=== PATIENT | male | born 1980 | race Hispanic/Latino ===

== ENCOUNTER 2019-02-16 22:13 | Inpatient (IN) ==
[2019-02-16 22:55] LABS: BASO# 0.06 X1000 (0.0-0.2); BASO% 0.3 % (0.0-0.8); EOS# 0.01 X1000 (0.0-0.7); HEMATOCRIT 52.5 % (42.0-52.0); IMM GRAN# 0.11 X1000 (0.0-0.04); IMM GRAN% 0.5 % (0.0-0.5); LYMPH# 1.56 X1000 (1.2-3.4); LYMPH% 6.8 % (20.5-51.1); MCH 31.2 PG (27-31); MCHC 36.2 g/dL (33-37); MCV 86.2 FL (81-99); MONO# 1.06 X1000 (0.11-0.59); MONO% 4.6 % (1.7-9.3); MPV 10.5 FL (7.4-10.4); NEUT# 20.29 X1000 (1.4-6.5); NEUT% 87.8 % (42.2-75.2); PLT 479 X1000 (130-400); RBC 6.09 XMIL (4.7-6.1); RDW 13.5 % (11.5-14.5); WBC 23.09 X1000 (4.8-10.8)
[2019-02-16 23:06] LABS: ESTIMATED GFR > 60
[2019-02-16 23:15] LABS: AGAP 31; ALBUMIN 5.2 g/dL (3.5-5.0); ALKALINE PHOSPHATASE 153 U/L (32-122); BUN 11 mg/dL (8-22); CALCIUM 9.4 mg/dL (8.8-10.2); CHLORIDE 102 mmol/L (98-107); COSMO 300; GOT 11 U/L (10-34); GPT 18 U/L (10-44); POTASSIUM 5.3 mmol/L (3.5-5.1); SODIUM 139 mmol/L (136-145); TCO2 6 mmol/L (25-35); TOTAL PROTEIN 8.5 g/dL (6.3-8.3)
[2019-02-16 23:18] LABS: GLUCOSE 515 mg/dL (70-104)
[2019-02-16] MEDS ORDERED: NS 1,000 ML IV ONE (23:41)
[2019-02-16] MEDS ORDERED: HUMALOG (PARKWAY) IV ONE (23:42)
[2019-02-16 23:59] LABS: BE -26.2 mmoll (-2.0-2.0); BLOOD TYPE VENOUS; HCO3-(ACT) 2.1 mmoll (22-27); PCO2(98.6) 29 mmHg (40-60); PO2(98.6) 16 mmHg (30-55); SAMPLE BLOOD; SAO2 38.8 % (40.0-85.0)
[2019-02-17 00:05] LABS: pH(98.6) 6.92 (7.32-7.43)
[2019-02-17] MEDS ORDERED: NS 1,000 ML IV ONE ×2 (00:24→00:58)
[2019-02-17] MEDS ORDERED: ZOFRAN IV PRN ×2 (00:56→08:45)
[2019-02-17] MEDS ORDERED: HUMULIN R (PARKWAY) ONE (01:10)
[2019-02-17] MEDS ORDERED: NS 100 ML ONE (01:11)
[2019-02-17] MEDS: HUMULIN R (PARKWAY) 100 UNITS in NS 100 ML IV SCH (01:30)
[2019-02-17 04:26] LABS: AGAP 20; BUN 12 mg/dL (8-22); CALCIUM 8.1 mg/dL (8.8-10.2); CHLORIDE 113 mmol/L (98-107); COSMO 288; CREATININE 0.8 mg/dL (0.7-1.2); ESTIMATED GFR > 60; GLUCOSE 291 mg/dL (70-104); MAGNESIUM 1.9 mg/dL (1.5-2.7); PHOSPHORUS 1.7 mg/dL (2.7-4.5); SODIUM 139 mmol/L (136-145); TCO2 7 mmol/L (25-35)
[2019-02-17 08:35] LABS: ESTIMATED GFR > 60
[2019-02-17 08:44] LABS: AGAP 12; BUN 12 mg/dL (8-22); CALCIUM 8.4 mg/dL (8.8-10.2); CHLORIDE 113 mmol/L (98-107); COSMO 285; CREATININE 0.7 mg/dL (0.7-1.2); GLUCOSE 237 mg/dL (70-104); MAGNESIUM 1.9 mg/dL (1.5-2.7); PHOSPHORUS 1.5 mg/dL (2.7-4.5); POTASSIUM 4.1 mmol/L (3.5-5.1); SODIUM 139 mmol/L (136-145); TCO2 14 mmol/L (25-35)
[2019-02-17] MEDS ORDERED: SODIUM PHOSPHATE 30 MMOL in D5W 250 ML IV PRN (08:45)
[2019-02-17] MEDS ORDERED: D50W SYRINGE IV PRN (08:45)
[2019-02-17] MEDS ORDERED: POTASSIUM CHLORIDE 10% LIQUID PO PRN (08:45)
[2019-02-17] MEDS ORDERED: MAGNESIUM SULFATE 2 GM/S.W.I. 2 GM/50 ML IVPB IV PRN (08:45)
--- NOTE | 2019-02-17 09:31 | EKG Report ---
Test Performed on : 02/16/2019 11:21:14 PM Test Reason : ER Blood Pressure : / mmHG Vent. Rate : 126 BPM Atrial Rate : 126 BPM P-R Int : 116 ms QRS Dur : 122 ms QT Int : 336 ms P-R-T Axes : 079 103 016 degrees QTc Int : 486 ms Sinus tachycardia. Right bundle branch block T wave abnormality, consider inferior ischemia Abnormal ECG No previous ECGs available Unconfirmed Result
[2019-02-17] MEDS: NS 1,000 ML IV SCH ×3 (10:30→23:00)
--- NOTE | 2019-02-17 11:39 | HISTORY AND PHYSICAL ---
CHIEF COMPLAINT: Was increased thirst, weakness, nausea, vomiting. HISTORY OF PRESENT ILLNESS: This is a 38-year-old gentleman who presents to the emergency room complaining of generalized weakness, thirst, as well as urination over the last 24 hours. He states that his children have been sick and he felt that he was getting the same although his symptoms progressed to the point of him spending all day in bed prior to coming to the ER. Of note, the patient was diagnosed with diabetes 2 months prior. He was placed on metformin, but he states he does not check his blood sugars because it hurts his fingers. Fingerstick blood sugar in triage was greater than 500. BMP revealed a glucose of 515. He was found to be with blood glucose being 515 on a BMP. PAST MEDICAL HISTORY: Diabetes mellitus. PAST SURGICAL HISTORY: Denies. SOCIAL HISTORY: Denies alcohol, tobacco, or illicit drug use. He is . He does live with his and children. ALLERGIES: No known drug allergies. HOME MEDICATIONS: The patient is prescribed metformin, it is unsure if he actually takes this. REVIEW OF SYSTEMS: Discussed with the patient with pertinent positives stated in the HPI. He denied any syncope, dizziness, chest pain, palpitations, any shortness of breath, cough, fever, chills, any black or bloody vomitus or stools any diarrhea constipation any hematuria dysuria frequency urgency. PHYSICAL EXAMINATION: GENERAL: This is a 38-year-old gentleman who is lying in the bed in ICU in no distress. VITAL SIGNS: Blood pressure is 116/66 with a heart rate of 90, respirations are 16, temperature is 98.9 degrees with room air saturations 98 to 100 percent. EYES: Pupils are equal, round, react to light. EOMs are anicteric. Sclerae are anicteric. HEENT: Head is normocephalic, atraumatic. Mucous membranes are moist. NECK: Supple with trachea midline. CARDIOVASCULAR: Regular rate and rhythm. S1 and S2 appreciated. He has no lower extremity edema. Calves are nontender bilateral. Peripheral pulses are palpable x4 extremities. PULMONARY: Breath sounds are clear with no increased work of breathing noted. Chest rises and falls symmetric to respiration. Chest wall is nontender to palpation. GASTROINTESTINAL: Abdomen is soft, nontender, nondistended with bowel sounds in all 4 quadrants. NEUROLOGIC: He is alert and oriented x3. SKIN: Warm and dry. LABS: WBC 23 with hemoglobin 19, hematocrit 52.5, and platelets of 479,000. Sodium 139, potassium is 4, BUN is 12, creatinine. BUN is 12, creatinine 0.8. He does have a CO2 of 7 with a gap of 20, blood sugars are ranging from 212 to 290 with a phosphorus of 1.7. ASSESSMENT AND PLAN: 1. Diabetic ketoacidosis. 2. Diabetes mellitus type 2 with noncompliance in a patient who was diagnosed 2 months prior. 3. Leukocytosis. PLAN: The patient has been admitted to ICU, placed on DKA protocol which we will continue. We will obtain a C-peptide. Will supplement electrolytes as is appropriate per protocol. We will consult dietitian for diabetic teaching. Will recheck a BMP, a mag and phosphorus as well as a CBC. Further treatments pending hospital course. Dictated by MARTHA Cantu for Neeraj Herrera MD cc: MARTHA Cantu MD
[2019-02-17 11:44] LABS: ESTIMATED GFR > 60
[2019-02-17 11:47] LABS: AGAP 14; BUN 12 mg/dL (8-22); CALCIUM 8.3 mg/dL (8.8-10.2); CHLORIDE 111 mmol/L (98-107); COSMO 285; CREATININE 0.7 mg/dL (0.7-1.2); GLUCOSE 245 mg/dL (70-104); MAGNESIUM 1.8 mg/dL (1.5-2.7); PHOSPHORUS 1.8 mg/dL (2.7-4.5); POTASSIUM 3.6 mmol/L (3.5-5.1); SODIUM 139 mmol/L (136-145); TCO2 15 mmol/L (25-35)
[2019-02-17 16:07] LABS: ESTIMATED GFR > 60
[2019-02-17 16:20] LABS: AGAP 13; BUN 13 mg/dL (8-22); CALCIUM 8.2 mg/dL (8.8-10.2); CHLORIDE 110 mmol/L (98-107); COSMO 286; CREATININE 0.5 mg/dL (0.7-1.2); GLUCOSE 280 mg/dL (70-104); MAGNESIUM 1.8 mg/dL (1.5-2.7); PHOSPHORUS 1.9 mg/dL (2.7-4.5); POTASSIUM 3.2 mmol/L (3.5-5.1); SODIUM 138 mmol/L (136-145); TCO2 15 mmol/L (25-35)
[2019-02-17] MEDS: POTASSIUM CHLORIDE 40 MEQ/SWI 40 MEQ/100 ML IVPB IV PRN (19:21)
[2019-02-17 19:25] LABS: ESTIMATED GFR > 60
[2019-02-17 19:33] LABS: AGAP 12; BUN 12 mg/dL (8-22); CHLORIDE 108 mmol/L (98-107); COSMO 284; CREATININE 0.6 mg/dL (0.7-1.2); GLUCOSE 355 mg/dL (70-104); MAGNESIUM 1.8 mg/dL (1.5-2.7); PHOSPHORUS 1.8 mg/dL (2.7-4.5); SODIUM 135 mmol/L (136-145); TCO2 16 mmol/L (25-35)
--- NOTE | 2019-02-17 20:14 | HISTORY AND PHYSICAL ---
ADDENDUM: Patient seen and examined by myself. Full note dictated and discussed with nurse practitioner. The patient presented to the hospital with increased thirst, weakness, nausea and vomiting. He was recently diagnosed with diabetes. He has actually not been taking any medications. We will admit him to the hospital, as he is in acute diabetic ketoacidosis with leukocytosis, elevated hyperkalemia, and will follow. Place him on protocol. cc: Neeraj Herrera MD
[2019-02-18] MEDS: HUMULIN R (PARKWAY) 100 UNITS in NS 100 ML IV SCH (00:15)
[2019-02-18 03:34] LABS: AGAP 9; BUN 11 mg/dL (8-22); CALCIUM 8.2 mg/dL (8.8-10.2); CHLORIDE 112 mmol/L (98-107); COSMO 284; CREATININE 0.5 mg/dL (0.7-1.2); GLUCOSE 221 mg/dL (70-104); SODIUM 139 mmol/L (136-145); TCO2 18 mmol/L (25-35)
[2019-02-18] MEDS: POTASSIUM CHLORIDE 40 MEQ/SWI 40 MEQ/100 ML IVPB IV PRN (04:11)
[2019-02-18 04:18] LABS: AGAP 9; BUN 11 mg/dL (8-22); CALCIUM 8.2 mg/dL (8.8-10.2); CHLORIDE 113 mmol/L (98-107); COSMO 286; CREATININE 0.5 mg/dL (0.7-1.2); ESTIMATED GFR > 60; GLUCOSE 186 mg/dL (70-104); POTASSIUM 2.8 mmol/L (3.5-5.1); SODIUM 141 mmol/L (136-145); TCO2 19 mmol/L (25-35)
[2019-02-18] MEDS: NS 1,000 ML IV SCH (05:53)
[2019-02-18] MEDS ORDERED: KLOR-CON PO ONE (07:12)
[2019-02-18] MEDS: PRILOSEC PO SCH (07:12)
[2019-02-18 07:49] LABS: BASO# 0.01 X1000 (0.0-0.2); BASO% 0.1 % (0.0-0.8); EOS# 0.07 X1000 (0.0-0.7); EOS% 0.9 % (0.0-10.0); HEMATOCRIT 38.6 % (42.0-52.0); HEMOGLOBIN 14.3 g/dL (14.0-18.0); IMM GRAN# 0.01 X1000 (0.0-0.04); IMM GRAN% 0.1 % (0.0-0.5); LYMPH# 1.39 X1000 (1.2-3.4); LYMPH% 17.7 % (20.5-51.1); MCH 31.4 PG (27-31); MCV 84.8 FL (81-99); MONO# 0.61 X1000 (0.11-0.59); MONO% 7.8 % (1.7-9.3); MPV 9.5 FL (7.4-10.4); NEUT# 5.78 X1000 (1.4-6.5); NEUT% 73.4 % (42.2-75.2); PLT 236 X1000 (130-400); RBC 4.55 XMIL (4.7-6.1); WBC 7.87 X1000 (4.8-10.8)
[2019-02-18] MEDS: NOVOLOG MIX 70/30 (PARKWAY) SUBQ SCH ×2 (07:50→16:26)
[2019-02-18 08:05] LABS: AGAP 9; ALBUMIN 3.3 g/dL (3.5-5.0); BUN 10 mg/dL (8-22); CALCIUM 8.2 mg/dL (8.8-10.2); CHLORIDE 114 mmol/L (98-107); COSMO 289; CREATININE 0.5 mg/dL (0.7-1.2); ESTIMATED GFR > 60; GLUCOSE 188 mg/dL (70-104); PHOSPHORUS 1.6 mg/dL (2.7-4.5); POTASSIUM 3.4 mmol/L (3.5-5.1); SODIUM 143 mmol/L (136-145); TCO2 20 mmol/L (25-35)
[2019-02-18] MEDS ORDERED: HUMULIN R (PARKWAY) SUBQ ONE (12:19)
[2019-02-18] MEDS: HUMULIN R (PARKWAY) SUBQ SCH ×3 (13:11→20:56)
--- NOTE | 2019-02-19 01:03 | PROGRESS NOTE ---
DATE: 02/18/2019 SUBJECTIVE: Patient overall notes he is feeling much better. Denies any current fevers or chills. Denies any chest pain. States that his symptoms have improved. OBJECTIVE: Vital signs: Temperature 98.3, pulse 60, respiratory 18, BP 101/71. General: Patient is awake. Currently he is in no distress. He is very pleasant to talk with. HEENT: Normocephalic. Neck: Supple. Cardiovascular: Regular rate. Chest: Clear. Abdomen: Soft, nondistended. Extremities: Moves all extremities. Neurologic: No changes. ASSESSMENT: 1. Diabetic ketoacidosis, resolved. 2. Type 1 diabetes. I do not feel as though patient is type 2. His C-peptide is extremely low at 0.2, despite his blood sugars being elevated. 3. Leukocytosis, resolved. 4. Others. PLAN: We will continue patient in the hospital. Place him on 70/30 insulin, as he does not have insurance and he can get ReliOn 70/30 at [facility]. We will continue to follow. Continue to educate. Get [employer] back by today to help his . cc: Neeraj Herrera MD
[2019-02-19] MEDS: PRILOSEC PO SCH (06:24)
[2019-02-19] MEDS: HUMULIN R (PARKWAY) SUBQ SCH ×3 (06:29→11:21)
[2019-02-19] MEDS: NOVOLOG MIX 70/30 (PARKWAY) SUBQ SCH (08:15)
[2019-02-19 08:30] VITALS: BP 126/87
[2019-02-19] MEDS ORDERED: PNEUMOVAX 23 IM ONE (09:00)
[2019-02-19] MEDS ORDERED: NOVOLOG MIX 70/30 (PARKWAY) SUBQ SCH (17:00)
--- NOTE | 2019-02-20 03:32 | DISCHARGE SUMMARY ---
ADMISSION DATE: 02/17/2019 DISCHARGE DATE: 02/19/2019 DISCHARGE DIAGNOSES: 1. Diabetic ketoacidosis, resolved. 2. Type 1 diabetes mellitus with C-peptide of 0.2. 3. Leukocytosis, resolved. DIAGNOSTICS: Blood cultures x2 revealed no growth after 48 hours. HOSPITAL COURSE: Mr. Sethi presented to the emergency room with increased thirst, weakness, nausea and vomiting. He was found to be in DKA. He was placed in ICU and treated on DKA protocol. Thankfully, we were able to wean the insulin drip and he has been placed on 70/30 insulin with blood sugars running in the 170s to 200 range. He has had no further nausea, vomiting. He has been eating diabetic diet with no difficulties. The patient has no insurance, therefore, we are discharging him on ReliOn 70/30 insulin. We did discuss the prices and the patient and his feel that they will have no difficulty buying this. The dietitian met with the patient as well as his during his hospitalization. DISCHARGE VITAL SIGNS: Blood pressure is 126/87 with a heart rate of 79, respirations are 18, temperature is 97.6 degrees oral, with room air saturations 100%. DISCHARGE PHYSICAL EXAMINATION: Cardiovascular: Regular rate and rhythm. S1, S2 appreciated. He has no lower extremity edema. Calves are nontender bilateral with peripheral pulses palpable x4 extremities. Pulmonary: Breath sounds are clear with no increased work of breathing noted. Chest rises and falls symmetric with respiration. Gastrointestinal: Abdomen is soft, nontender, nondistended. Bowel sounds in all 4 quadrants. Neurologic: He is alert and oriented x3. DISCHARGE MEDICATIONS: Novolin 70/30 insulin 10 units subcu b.i.d., atorvastatin 20 mg p.o. at bedtime. FOLLOW-UP: He is to follow up with Dr. Neeraj Herrera in the next 1 to 2 weeks, sooner if needed. TIME SPENT: This is a greater than 30 minute discharge. Dictated by MARTHA Cantu for Neeraj Herrera MD cc: MARTHA Cantu MD
--- NOTE | 2019-02-20 08:50 | PROVIDER DOCUMENTATION ---
This chart was entered by Kassandra Ron Scribe, acting as scribe for Isaías Bhakta MD. HPI-General Adult - General Chief Complaint: Nausea/Vomiting Stated Complaint: N/V, FEVER Time Seen by Provider: 02/16/19 23:32 Source: patient - History of Present Illness -Gen Adult Nature of Presenting Problems: pt is a 38 yr old male presenting with complaint of increased thirst, weakness, nausea vomiting. pt admits recent dx DM. pt has been exposed to his sick kids. pt reports having bee following his diet and medication regimen Location of Pain/Injury: reports: generalized Pain Radiation: reports: no radiation Quality of Pain: reports: aching Severity: reports: mild Onset/Duration: reports: this evening Timing: reports: still present Context/Activities at Onset: reports: rest Modifying Factors: improves with: nothing Associated Symptoms: reports: fatigue, headaches, malaise, muscle aches, nausea, vomiting, weakness. denies: fever/chills, sinus congestion/drainage Similar Symptoms Previously?: No Recently seen or treated by another doctor?: No - Diabetes Related Context Context: reports: high blood sugar Review of Systems - Adult - REVIEW OF SYSTEMS - ADULT Constitutional: reports: fatique. denies: chills, fever Eyes: reports: no symptoms reported Ears, Nose, Mouth & Throat: denies: ear pain, sinus problem, throat pain Cardiovascular: denies: chest pain, syncope Respiratory: denies: cough, shortness of breath Gastrointestinal: reports: nausea, vomiting. denies: abdominal pain Genitourinary: denies: dysuria, frequency, flank pain Musculoskeletal: reports: muscle aches, muscle weakness Integumentary: reports: no symptoms reported Neurological: denies: dizziness/vertigo, headache/migraines, syncope Psychiatric: reports: no symptoms reported Endocrine: reports: increased thirst, polyuria Hematologic/Lymphatic: reports: no symptoms reported Allergic/Immunologic: reports: no symptoms reported All Other Systems: Reviewed and Negative Past History - Adult - PAST MEDICAL HISTORY-ADULT Review of Records: reports: Nursing Assessment Review, Medications Reviewed, Social history reviewed & non-contributory. Major Childhood Illnesses: reports: denies history Cardiovascular: reports: denies history Respiratory: reports: denies history Gastrointestinal: reports: denies history Obstetrical/Gynecological: reports: denies history Genitourinary: reports: denies history Musculoskeletal: reports: denies history Neurological: reports: denies history Endocrine/Immune: reports: denies history Other Conditions: reports: denies history - IMMUNIZATION STATUS Childhood Immunizations: See Nurse Assessment Flu Vaccine: See Nurse Assessment - FAMILY HISTORY Family History: reviewed, not pertinent - SOCIAL HISTORY Smoking: denies Substance Use: denies Living Situation: family Physical Exam-General - PHYSICAL EXAM-ADULT Initial Vital Signs Reviewed: Yes - CONSTITUTIONAL General Appearance: moderate distress - EYES Eyes: PERRL/EOMI, sunken eyes - HEAD, EARS, NOSE, MOUTH & THROAT HENMT: normocephalic/atraumatic, pharynx normal - NECK Neck: supple - RESPIRATORY Respiratory: lungs clear - CARDIOVASCULAR Cardiovascular: tachycardia - GASTROINTESTINAL (ABDOMEN) Abdominal Exam: soft - LYMPHATIC Lymphatic: no adenopathy - MUSCULOSKELETAL Back Exam: normal inspection, no CVA tenderness Extremity: normal range of motion - SKIN Integumentary: normal color, normal turgor - NEUROLOGIC Neurologic: grossly normal - PSYCHIATRIC Psych/Mental Status: oriented x 3 Progress - PLAN OF CARE/RESULTS Progress/Plan/Lab Results: Vital Signs - 8 hr 02/16/19 22:23 Temperature 97.5 F L Pulse Rate 125 H Respiratory Rate 18 Blood Pressure 134/79 O2 Sat by Pulse Oximetry 98 Laboratory Results - last 24 hr 02/16/19 02/16/19 02/16/19 22:30 22:44 22:44 WBC 23.09 H RBC 6.09 Hgb 19.0 H Hct 52.5 H MCV 86.2 MCH 31.2 H MCHC 36.2 RDW Std Deviation 13.5 Plt Count 479 H MPV 10.5 H Immature Gran % (Auto) 0.5 Neut % (Auto) 87.8 H Lymph % (Auto) 6.8 L [place] % (Auto) 4.6 Eos % (Auto) 0.0 Baso % (Auto) 0.3 Immature Gran # (Auto) 0.11 H Neut # (Auto) 20.29 H Lymph # (Auto) 1.56 [place] # (Auto) 1.06 H Eos # (Auto) 0.01 Baso # (Auto) 0.06 Sodium 139 Potassium 5.3 H Chloride 102 Carbon Dioxide 6 L Anion Gap 31 BUN 11 Creatinine 1.0 Estimated GFR/1.73 m2 > 60 BUN/Creatinine Ratio 11 Glucose 515 H* POC Glucose 500 H Calculated Osmolality 300 Calcium 9.4 Total Bilirubin 0.80 AST 11 ALT 18 Alkaline Phosphatase 153 H Total Protein 8.5 H Albumin 5.2 H Globulin 3.0 Albumin/Globulin Ratio 2.0 Orders Category Date Time Status IV Insertion ORDERED Care 02/16/19 22:33 Completed CBC WITH ELECTRONIC DIFF [HEME] Stat Lab 02/16/19 22:44 Completed CMP [COMPREHENSIVE METABOLIC PANEL] [CHEM] Stat Lab 02/16/19 22:[address] BLOOD GAS [address] [RESP] Routine Lab 02/16/19 23:45 Ordered 0.9% Sodium Chloride Inj [Ns] 1,000 ml Med 02/16/19 23:41 Active IV 999 mls/hr Insulin Lispro ([place]) [Humalog ([place])] Med 02/16/19 23:42 Discontinued 10 units IV NOW ONE Oxygen Device Stat Oth 02/16/19 23:43 Active Result Diagrams: 02/16/19 22:44 02/16/19 22:44 - EKG 1 Time of EKG reading by physician:: 23:21 EKG Read and Signed by:: Isaías Bhakta EKG Interpretation (*Must complete 3 of following elements*): Abnormal (twave abnormality-condiser inferior ischemia) Rate: 126 Rhythm: sinus tachycardia [place]: normal QRS: RBB [place] Interval: normal ST Wave: normal Departure - Departure Referrals and Follow-Ups: Neeraj Herrera MD [Primary Care Provider] - Work Excuses: Return to School/Parent Work This chart was documented by the indicated scribe, (Kassandra Ron, Scribe) and accurately reflects the services I performed and decisions made by me, Isaías Bhakta MD, as attested by the provider's signature.
--- NOTE | 2019-02-20 18:18 | DISCHARGE SUMMARY ---
ADMISSION DATE: 02/17/2019 DISCHARGE DATE: 02/19/2019 ADDENDUM: Patient seen and examined by myself, full note dictated and discussed with nurse practitioner. Patient be discharged home. Greater than 30 minutes was spent in total care, education. Discussed with him how to use insulin, how to adjust a 70/30, he is currently taking 12 units twice daily. Overall patient notes he is feeling better. He will be discharged home. He will follow up outpatient with his primary care. The patient does appear to have type 1 diabetes with a C-peptide very low at 0.2 despite having hyperglycemia. Please see full note. cc: Neeraj Herrera MD
== END 2019-02-19 12:35 | disposition home or self-care (01) | DRG 639 ==
LOC: SUPCPDRO → P.ED 22:13 → P.MEDSURG 02-17 01:20 → P.ICU 02-17 01:22 → P.MEDSURG 02-19
PROVIDERS: ATTEND Family Medicine
CPT/HCPCS: 36415; 80048; 80053; 80069; 82805; 82948; 83735; 84100; 84681; 85018; 85025; 87040; 90732; 93005; 96360; 99285; A9270; J1815; J3480; J7030; XXXXX